=== PATIENT | female | born 1935 | race African-American/Black ===

== ENCOUNTER 2016-09-25 10:56 | Inpatient (IN) | payer MEDICARE, MEDICAID ==
[2016-09-25] VITALS (23 sets, daily range): BP systolic 120–231; BP diastolic 56–154; PULSE 55–83; RESP 14; TEMP 93.4–98.6; O2SAT 100
[~2016-09-25 10:56] MED LIST: ADVAI250I PO; ALBU6.7H INH; BUME1TAB PO; CALC667C PO; CARV3.12 PO; DOCU1CAP39 PO; DUONI NEB; FERR324T4 PO; HUMALOGP SQ; ISOS10 PO; LORA0.5T PO; NORC7.5T PO; ONDA4 PO; POLY119S PO; PROT40TA PO; TEMA15 PO; WARF1TAB PO
[2016-09-25] MEDS ORDERED: ETOMIDATE 20 MG/10 ML VIAL ONE (11:04)
[2016-09-25] MEDS ORDERED: SUCCINYLCHOLINE CHLORIDE 200 MG/10 ML VIAL ONE (11:04)
[2016-09-25] MEDS ORDERED: PROPOFOL 1000 MG/100 ML INJ 100 ML ONE (11:06)
--- NOTE | 2016-09-25 11:27 | PD ---
HPI Chief Complaint: Stroke Alert Time Seen by Provider: 11:00 Travel History International Travel<30 days: No Contact w/Intl Traveler<30days: No Traveled to known affect area: No History of Present Illness HPI The patient was seen and examined in the presence of the nurse. This patient arrives as a stroke alert. She is a longterm patient who has A. fib and takes Coumadin. She complained of a headache and was found to be unresponsive with GCS of 3. She cannot provide any history or review of systems. PFSH Past Medical History Hx Anticoagulant Therapy: Yes Arthritis: Yes Asthma: No Autoimmune Disease: No Blood Disorders: No Anxiety: No Depression: No Heart Rhythm Problems: Yes (A-FIB, coumadin) Cancer: No Cardiovascular Problems: Yes High Cholesterol: Yes Chemotherapy: No Chest Pain: No Congestive Heart Failure: Yes Cirrhosis: No COPD: Yes Cerebrovascular Accident: Yes Diabetes: Yes Diminished Hearing: No Endocrine: Yes (ESRD) Gastrointestinal Disorders: Yes GERD: No Glaucoma: No Genitourinary: No Headaches: Yes Hepatitis: No Hiatal Hernia: No Hypertension: Yes Immune Disorder: No Implanted Vascular Access Dvce: Yes Kidney Stones: No Musculoskeletal: Yes Neurologic: Yes (confusion) Psychiatric: No Reproductive: No Respiratory: Yes Migraines: No Myocardial Infarction: Yes Radiation Therapy: No Renal Failure: No Seizures: Yes (1 seizure last yr ) Sickle Cell Disease: No Sleep Apnea: No Thyroid Disease: No Ulcer: No PNEUMOCCOCAL Vaccine (Year): 2 Menopausal: Yes Past Surgical History Abdominal Surgery: No AICD: Yes Appendectomy: No Arteriovenous Shunt: No Body Medical Devices: INTERNAL CARDIAC DEFIB Cardiac Surgery: Yes (AICD placement, pacer placement) Cholecystectomy: No Ear Surgery: No Endocrine Surgery: No Eye Surgery: No Genitourinary Surgery: No Gynecologic Surgery: Yes (hysterectomy) Hysterectomy: Yes Insulin Pump: No Joint Replacement: No Neurologic Surgery: No Oral Surgery: No Pacemaker: Yes Thoracic Surgery: No Other Surgery: Yes (BILATERAL LYMPH NODES REMOVED UNDER ARMS, HYSTERECTOMY) Social History Alcohol Use: No Tobacco Use: No (1PPD 1951) Substance Use: No Allergies-Medications (Allergen,Severity, Reaction): Coded Allergies: MRI PRECAUTION (Verified Adverse Reaction, Severe, NON REVO PACEMAKER 11/09 LRS, 03/18/16) Reported Meds & Prescriptions Reported Meds & Active Scripts Active Carvedilol 3.125 mg (Carvedilol) 3.125 Mg Tab 3.125 Mg PO BID 30 Days Bumetanide 1 Mg (Bumetanide) 1 Mg Tab 1 Mg PO DAILY 30 Days [place] 7.5-325 mg (Hydrocodone-Acetaminophen 7.5-325 mg) 1 Tab 1 Tab PO Q8HR PRN Ferrous Sulfate 325 Mg Tab 325 Mg PO DAILY Proventil Hfa (Albuterol Sulfate) 6.7 Gm Aero 2 Puff INH Q4 30 Days NEEDED FOR SHORTNESS OF BREATH Protonix (Pantoprazole Sodium) 40 Mg Tab 40 Mg PO DAILY Reported Resp: Albuterol/Ipratropium 2.5 Mg/0.5 Mg (Albuterol/Ipratropium) 1 Amp Nebu 1 Ampule NEB Q4HR NEB PRN Restoril 15 mg (Temazepam) 15 Mg Cap 15 Mg PO HS PRN Phoslo 667 Mg Gelcap (Calcium Acetate) 667 Mg Cap 667 Mg PO TID Isordil 10 Mg Tab (Isosorbide Dinitrate) 10 Mg Tab 10 Mg PO BID 0900 & 1700 Colace 100 Mg Cap (Docusate Sodium) 100 Mg Cap 100 Mg PO BID 0900 & 1700 Advair Diskus 250/50 (Salmeterol Xinafoate/Fluticasone) Fluticasone/Salmeterol 250/50 Inh 1 Puff PO BID Warfarin Sodium 1 mg (Warfarin Sodium) 1 Mg Tab 3.5 Mg PO DAILY@1600 Lorazepam 0.5 Mg Tab 0.25 Mg PO Q6HR PRN Humalog Insulin Supplemental Scale (Insulin Human Lispro) 100 Units/Ml Inj 1-5 Units SQ TIDACHS Low Dose Lispro Insulin Sliding Scale = Max dose at bedtime:( )units; Max dose at 3am:( ); blood sugars less than 70 take zero insulin units; blood sugars 150-199 take 1 unit; blood sugars 200-249 take 2 units; blood sugars 250-299 take 3 units; blood sugars 300-349 take 4 units; blood sugars greater than 349 take 5 units Miralax 119 Gm Bottle (Polyethylene Glycol) 119 Gm Powd 17 Gm PO DAILY PRN 17 GRAMS = 1 TABLESPOON DISSOLVED IN 4 TO 8 OUNCES OF BEVERAGE Zofran 4 Mg Tab (Ondansetron Hcl) 4 Mg Tab 4 Mg PO TID PRN Review of Systems ROS Limitations: Clinical Condition, Altered Mental Status, Unresponsive, Poor Historian Physical Exam Narrative GENERAL: Thin elderly well-developed patient who is unresponsive . SKIN: Warm and dry. HEAD: Atraumatic. Normocephalic. EYES: Pupil on the left is round and reactive. Pupil on the right has a completely clouded over cornea. No scleral icterus. No injection or drainage. ENT: No nasal bleeding or discharge. Mucous membranes pink and moist. She has absolutely no gag reflex. NECK: Trachea midline. No JVD. CARDIOVASCULAR: Regular rate and rhythm. No murmur appreciated. RESPIRATORY: No accessory muscle use. Clear to auscultation. Breath sounds equal bilaterally. GASTROINTESTINAL: Abdomen soft, non-tender, nondistended. Hepatic and splenic margins not palpable. MUSCULOSKELETAL: No obvious deformities. No clubbing. No cyanosis. No edema. NEUROLOGICAL: Unresponsive, no response to pain. No gag reflex. GCS 3. Nonverbal. Impossible to accurately gauge motor strength or sensation PSYCHIATRIC: Impossible to test mood or affect or insight or judgment. Data Data Last Documented VS Vital Signs Date Time Temp Pulse Resp B/P Pulse Ox O2 Delivery O2 Flow Rate FiO2 09/25/16 11:39 66 176/79 100 Orders Etomidate Inj (Amidate Inj) (09/25/16 11:04) Succinylcholine Inj (Quelicin Inj) (09/25/16 11:04) Propofol 1000 Mg/100 Ml Inj (Diprivan 10 (09/25/16 11:06) Diet Npo (09/25/16 Lunch) Activity Bed Rest (09/25/16 ) Electrocardiogram (09/25/16 ) I-Stat Creatinine (09/25/16 11:16) I-Stat Profile (09/25/16 11:16) Prothrombin Time / Inr (Pt) (09/25/16 11:16) Act Partial Throm Time (Ptt) (09/25/16 11:16) Complete Blood Count With Diff (09/25/16 11:16) Fibrinogen (09/25/16 11:16) Creatine Kinase (Cpk) (09/25/16 11:16) Ct Brain W/O Iv Contrast(Rout) (09/25/16 ) Blood Glucose (09/25/16 11:16) Ecg Monitoring (09/25/16 11:16) Neuro Checks Q2HX12,Q4H (09/25/16 11:16) Iv Access Insert/Monitor (09/25/16 11:16) NPO (09/25/16 11:16) Oximetry (09/25/16 11:16) Oxygen Administration (09/25/16 11:16) Resp Oxygen Vidal C Titrat 1-4 L (09/25/16 11:16) Arterial Blood Gas (Abg) (09/25/16 ) Chest, Single Ap (09/25/16 ) Urinary Catheter Insert/Apply (09/25/16 11:19) Etomidate Inj (Amidate Inj) (09/25/16 11:30) Succinylcholine Inj (Quelicin Inj) (09/25/16 11:30) Pedro-Gastric Tube Insert/Mon (09/25/16 11:19) CKMB (09/25/16 10:50) CKMB% (09/25/16 10:50) Phytonadione Inj (Aquamephyton Inj) (09/25/16 12:00) Fresh Frozen Plasma (Ffp) (09/25/16 11:57) Blood Product Administration .UPON TRANSFUSION (09/25/16 11:57) Admit Order (Ed Use Only) (09/25/16 12:08) Labs Laboratory Tests Test 09/25/16 10:50 White Blood Count 6.4 TH/MM3 Red Blood Count 4.21 MIL/MM3 Hemoglobin 11.2 GM/DL Bedside Hemoglobin 11.9 G/DL Hematocrit 34.0 % Bedside Hematocrit 35.0 % Mean Corpuscular Volume 80.9 FL Mean Corpuscular Hemoglobin 26.7 PG Mean Corpuscular Hemoglobin 33.0 % Concent Red Cell Distribution Width 19.1 % Platelet Count 148 TH/MM3 Mean Platelet Volume 10.4 FL Neutrophils (%) (Auto) 44.5 % Lymphocytes (%) (Auto) 39.0 % Monocytes (%) (Auto) 11.9 % Eosinophils (%) (Auto) 3.7 % Basophils (%) (Auto) 0.9 % Neutrophils # (Auto) 2.8 TH/MM3 Lymphocytes # (Auto) 2.5 TH/MM3 Monocytes # (Auto) 0.8 TH/MM3 Eosinophils # (Auto) 0.2 TH/MM3 Basophils # (Auto) 0.1 TH/MM3 CBC Comment DIFF FINAL Differential Comment Prothrombin Time 28.1 SEC Prothromb Time International 2.4 RATIO Ratio Activated Partial 31.7 SEC Thromboplast Time Fibrinogen 320 mg/dL Bedside Sodium 140 MMOL/L Bedside Potassium 4.4 MMOL/L Bedside Chloride 105 MMOL/L Bedside Blood Urea Nitrogen 76 MG/DL Bedside Creatinine 2.5 MG/DL Bedside Glucose 143 MG/DL Total Creatine Kinase 230 U/L Creatine Kinase MB 2.9 NG/ML Creatine Kinase MB % 1.3 % [facility] Medical Decision Making Medical Screen Exam Complete: Yes Emergency Medical Condition: Yes Medical Record Reviewed: Yes Differential Diagnosis Intracranial hemorrhage, ischemic stroke, cardiac arrhythmia Narrative Course I have reviewed the patient's electronic medical record. Reviewed her most recent history and physical. She has cardiomyopathy and chronic A. fib on Coumadin. Reviewed her most recent longterm evaluation as well Nurse's placed 2 IVs I placed a 20-gauge in the right external jugular vein Patient arrives critically ill with no airway control INTUBATION: The patient was put in optimal position for the procedure. Rapid sequence intubation was initiated by me using 20 milligrams of etomidate IV and 100 milligrams of succinylcholine IV. The patient was intubated with a 7.5 cuffed endotracheal tube. Tube placement was confirmed by visualization of the tube and balloon passing through the cords, capnometry and subsequent chest x- ray. Breath sounds were equal and well aerated bilaterally postintubation. No breath sounds over stomach. Patient tolerated procedure well. Patient initial blood pressure is 180 with a rhythm A. fib Extended cardiac monitoring confirms atrial fibrillation Brain CT shows very large hemorrhage 8.4 x 4.8 cm with 2 cm of midline shift CBC shows minor anemia Metabolic profile reveals normal electrolytes but creatinine of 2.5 INR on Coumadin is 2.4 Of note, due to the airway taking precedence there was delayed to get the patient a CT so she will not have been there in 10 minutes due to the fact that I had to intubate her to secure her airway. This is a catastrophic finding. I discussed with neurosurgeon Dr. Leavitt. This is beyond operative repair. He is not able to do much for this problem. I gave her a dose of vitamin K and ordered 3 units of FFP Placed her on Cardene drip to control systolic blood pressure Patient will be admitted to intensive care but ultimately I'm not sure this will be a survivable Patient is very complex, multiple rechecks were done. At this point she is not requiring Diprivan for sedation I paged the cigar bander to discuss Critical Care Narrative Aggregate critical care time was 80 minutes. Time to perform other separately billable procedures was not included in the critical care time. My time did not include minutes spent treating any other patients simultaneously or on activities that did not directly contribute to the patient's treatment. The services I provided to this patient were to treat and/or prevent clinically significant deterioration that could result in: Cardiopulmonary arrest, brain stem herniation, permanent hypoxemic brain injury I provided critical care services requiring my management, as noted below: Chart data review, documentation time, medication orders and management, vital sign assessments/reviewing monitor data, ordering and reviewing lab tests, ordering and interpreting/reviewing x-rays and diagnostic studies, care of the patient and discussion of the patient with the admitting physicians. Diagnosis Primary Impression: Intracranial hemorrhage Additional Impressions: Accelerated hypertension History of Coumadin therapy Admitting Information Admitting Physician Requests: Admit Que Payton MD Sep 25, 2016 11:27
[2016-09-25 11:28] LABS: I-STAT POTASSIUM 4.4 MMOL/L (3.5-4.9)
[2016-09-25] MEDS ORDERED: SUCCINYLCHOLINE CHLORIDE 200 MG/10 ML VIAL IV PUSH ONE (11:30)
[2016-09-25] MEDS ORDERED: ETOMIDATE 20 MG/10 ML VIAL IV PUSH ONE (11:30)
[2016-09-25 11:32] LABS: AUTOMATED NEUTROPHIL # 2.8 TH/MM3 (1.8-7.7); BASOPHIL # 0.1 TH/MM3 (0-0.2); BASOPHIL % 0.9 % (0.0-2.0); EOSINOPHIL # 0.2 TH/MM3 (0-0.4); EOSINOPHIL % 3.7 % (0.0-4.0); HEMO FLAGS DIFF FINAL; LYMPHOCYTE # 2.5 TH/MM3 (1.0-4.8); MEAN CELL VOLUME 80.9 FL (80.0-100.0); MEAN CORPUSCULAR HEMOGLOBIN 26.7 PG (27.0-34.0); MONO % 11.9 % (0.0-8.0); NEUT % 44.5 % (16.0-70.0); PLATELET COUNT 148 TH/MM3 (150-450); RED BLOOD COUNT 4.21 MIL/MM3 (4.00-5.30); RED CELL DISTRIBUTION WIDTH 19.1 % (11.6-17.2); WHITE BLOOD COUNT 6.4 TH/MM3 (4.0-11.0)
[2016-09-25 11:36] LABS: APTT (PATIENT) 31.7 SEC (24.3-30.1); INTERNATIONAL NORMALIZED RATIO 2.4 RATIO; PROTHROMBIN TIME - PATIENT 28.1 SEC (9.8-11.6)
--- NOTE | 2016-09-25 11:41 | RADRPT ---
EXAM DATE/TIME: 09/25/2016 11:27 [facility] COMPARISON: No previous studies available for comparison. INDICATIONS : Stroke alert, headache, unilateral weakness RADIATION DOSE: 37.48 CTDIvol (mGy) This report was called by Dr. Mzea to Dr. Payton at 11: 37 AM MEDICAL HISTORY : Hypertension. Diabetes mellitus type 1. Cardiovascular disease SURGICAL HISTORY : None. ENCOUNTER: Initial ACUITY: 1 day PAIN SCALE: Non-responsive LOCATION: cranial TECHNIQUE: Multiple contiguous axial images were obtained of the head. Using automated exposure control and adj ustment of the mA and/or kV according to patient size, radiation dose was kept as low as reasonably a chievable to obtain optimal diagnostic quality images. FINDINGS: There is a large hemorrhagic infarct in the right hemisphere measuring up to 8.4 x 4.8 cm with surrou nding edema and mass effect. There is also an element of subarachnoid hemorrhage and possibly some cali bdural hemorrhage over the right convexity. Days midline shift of 1.9 cm from right to left. There is some early entrapment of the left lateral ventricle. There is effacement of the basilar cisterns. Th ere is subfalcine herniation on the right. CONCLUSION: 1. Large right-sided hemispheric hemorrhage measuring up to 8.4 x 4.8 cm with some associated subdura l and subarachnoid hemorrhage. There is surrounding edema and extensive mass effect with 1.9 cm right to left midline shift. There is effacement of the basilar cisterns and entrapment of the left latera l ventricle. Jose Luis Meza MD on September 25, 2016 at 11:35 Board Certified Radiologist. This report was verified electronically.
--- NOTE | 2016-09-25 11:59 | RADRPT ---
EXAM DATE/TIME: 09/25/2016 11:34 [facility] COMPARISON: CT THORAX W/O CONTRAST, October 03, 2015, 0:54. CHEST SINGLE AP, March 20, 2016, 18:59. INDICATIONS : Stroke alert. Post intubation. MEDICAL HISTORY : unobtainable SURGICAL HISTORY : unobtainable ENCOUNTER: Initial ACUITY: 1 day PAIN SCORE: Non-responsive. LOCATION: chest FINDINGS: Portable AP view of the chest demonstrate stable enlargement of the cardiac silhouette. Left chest wa ll cardiac pacing device/AICD is present. Aortic arch remains mildly enlarged but stable. Endotrachea l tube is present with tip measuring 2.3 cm from the aric. Lungs are underinflated. There is no eff usion, consolidation, or pneumothorax visualized. CONCLUSION: 1. Endotracheal tube in appropriate position with tip measuring approximately 2.3 cm from the airc. 2. Stable enlargement of the cardiac silhouette and enlarged aortic arch. Dillan Nicole MD on September 25, 2016 at 11:56 Board Certified Radiologist. This report was verified electronically.
[2016-09-25] MEDS ORDERED: PHYTONADIONE INJ 1 MG/0.5 ML AMP SQ ONE (12:00)
[2016-09-25 12:03] LABS: CKMB 2.9 NG/ML (0.5-3.6)
[2016-09-25 12:18] LABS: BLOOD GAS BASE EXCESS -0.3 mmol/L (-2-2); BLOOD GAS HCO3 22 mmol/L (22-26); BLOOD GAS METHEMOGLOBIN 0.5 % (0-2); BLOOD GAS O2 HGB SATURATION 99 % (90-100); BLOOD GAS OXYGEN CONTENT 17.1 Vol % (12.0-20.0); BLOOD GAS PCO2 25 mmHg (38-42); BLOOD GAS PO2 517 mmHG (61-120); BLOOD GAS TOTAL HGB 11.4 G/DL (12.0-16.0); TEMP CORR TO 98.6
[2016-09-25 12:20] LABS: CRITICAL VALUE YES; DRAW SITE RT FEMORAL; FIO2 100 %; NUMBER OF ARTERIAL PUNCTURES 1; OXYGEN DEVICE VENTILATOR; STAT YES; VENT SETTINGS 500/16/+5
[2016-09-25] MEDS ORDERED: PHYTONADIONE 10 MG/ML VIAL SQ ONE (12:45)
[2016-09-25] MEDS ORDERED: MISCELLANEOUS NURSING INFORMATION XX SCH (13:00)
[2016-09-25] MEDS ORDERED: PROPOFOL 1000 MG/100 ML INJ 100 ML IV SCH (13:00)
[2016-09-25] MEDS ORDERED: levETIRAcetam 1000 MG INJ 100 ML IV ONE (13:00)
[2016-09-25] MEDS ORDERED: niCARdipine INJ 25 MG in SODIUM CHLOR 0.9% 250 ML INJ 250 ML IV ONE (13:00)
[2016-09-25] MEDS ORDERED: SODIUM CHLORIDE 0.9% FLUSH 5 ML FLUSH IV FLUSH PRN (13:00)
[2016-09-25] MEDS ORDERED: fentaNYL DRIP 250 ML IV SCH (13:00)
[2016-09-25] MEDS ORDERED: PROTHROMBIN COMPLEX CONC INJ 1,500 UNITS in SYRINGE/BAG 1 EA IV ONE (13:00)
[2016-09-25] MEDS ORDERED: CHLORHEXIDINE GLUCONATE 2 % 1 PACK (2 CLOTHS) TOP PRN (13:00)
[2016-09-25] MEDS ORDERED: HYDR-3288 PO (13:04)
[2016-09-25] MEDS ORDERED: REST15CA PO (13:04)
[2016-09-25] MEDS ORDERED: FERR325T PO (13:04)
[2016-09-25] MEDS ORDERED: ISOS10TA PO (13:04)
[2016-09-25] MEDS ORDERED: CARV3.125 PO (13:04)
[2016-09-25] MEDS ORDERED: PHOS667C5 PO (13:04)
[2016-09-25] MEDS ORDERED: OXYBXL5 PO (13:04)
[2016-09-25] MEDS ORDERED: VITA100018 PO (13:04)
[2016-09-25] MEDS ORDERED: COLA100C3 PO (13:04)
[2016-09-25] MEDS ORDERED: COUM5TAB PO (13:04)
[2016-09-25] MEDS ORDERED: BUME1TAB26 PO (13:04)
[2016-09-25] MEDS ORDERED: LORA-392 PO (13:04)
[2016-09-25] MEDS ORDERED: [UNRECOGNIZED DRUG - CODE] PO (13:04)
[2016-09-25] MEDS ORDERED: ACETAMINOPHEN 325 MG TAB PO PRN (14:00)
[2016-09-25] MEDS ORDERED: RESP: ALBUTEROL 2.5 MG/IPRATROPIUM 0.5 MG NEB (PRN) INH (14:00)
[2016-09-25] MEDS ORDERED: ONDANSETRON HCL 4 MG/2 ML VIAL IV PRN (14:00)
[2016-09-25 14:02] LABS: TOTAL BILIRUBIN ADULT 0.4 MG/DL (0.2-1.0)
--- NOTE | 2016-09-25 14:03 | PD.PROCEDR ---
Central Line Procedure REASON FOR PROCEDURE Central venous access PROCEDURE PERFORMED Central line placement: R subclavian central line CONSENT Informed consent for procedure was obtained. ANESTHESIA Local injection of 1% Lidocaine DESCRIPTION OF THE PROCEDURE The patient was placed in supine, mild Trendelenburg position. The area was exposed and cleansed with ChloraPrep, times two. Large sterile drape was used to cover the patient, with the site exposed, under sterile conditions including cap, face mask, sterile gown, and sterile gloves. On single attempt, the introducer needle was inserted with negative pressure in syringe and venous flash was obtained. The guide wire was then advanced without any restriction and the needle was removed. The dilator was used without any complications. Using Seldinger technique the 20 CM 7F triple lumen catheter was advanced over the guide wire to a depth of 16 centimeters. The guide wire was removed. All ports were aspirated with dark venous blood return and flushed easily with sterile saline. All ports were capped. Antibiotic disc was placed around central line at puncture site. The central line was secured to the skin with two interrupted 2.0 silk sutures. The area was bandaged with sterile see- through central line bandage. COMPLICATIONS: No apparent complications ESTIMATED BLOOD LOSS: Less than 1 cc. Karyn Grimaldo MD Sep 25, 2016 14:03
[2016-09-25 14:04] LABS: INDIRECT BILIRUBIN 0.2 MG/DL (0.0-0.8); MAGNESIUM 2.3 MG/DL (1.5-2.5)
--- NOTE | 2016-09-25 14:11 | HHI.HP ---
HPI Service Critical Care Medicine Primary Care Physician Unknown Admission Diagnosis ICH,elevated INR Diagnosis: (1) Intracranial hemorrhage Diagnosis: Principal (2) Accelerated hypertension Diagnosis: Principal (3) History of Coumadin therapy Diagnosis: Principal (4) COPD (chronic obstructive pulmonary disease) with emphysema Diagnosis: Principal (5) CAD (coronary artery disease) Diagnosis: Principal (6) Aortic stenosis Diagnosis: Principal (7) Diabetes mellitus Diagnosis: Principal (8) Normocytic anemia Diagnosis: Principal (9) Chronic kidney disease, stage IV (severe) Diagnosis: Principal (10) Thrombocytopenia Diagnosis: Principal (11) Depression Diagnosis: Principal (12) Incontinence Diagnosis: Principal (13) Constipation Diagnosis: Principal Chief Complaint: Unresponsive Travel History International Travel<30 Days: No Contact w/Intl Traveler <30 Da: No Traveled to Known Affected Are: No History of Present Illness 81-year-old female. Date of admission 09/25/2016. Past medical history includes CVA, seizure, coronary artery disease, atrial fibrillation, aortic stenosis, ischemic cardiopathy ejection fraction between 10 and 20%, atrial fibrillation, COPD, diabetes mellitus, chronic kidney disease stage IV, osteoarthritis, and urinary incontinence. She is a resident of [facility]. Review of Systems ROS Limitations: Intubated Past Family Social History Allergies: Coded Allergies: MRI PRECAUTION (Verified Adverse Reaction, Severe, NON REVO PACEMAKER 11/09 LRS, 03/18/16) Past Medical History CVA Seizure disorder Coronary artery disease Ischemic cardiomyopathy ejection fraction 20% 2015 Atrial fibrillation Diabetes mellitus COPD Osteoarthritis Chronic kidney disease stage IV Past Surgical History Hysterectomy Pacemaker/AICD with replacement Lymph node dissection Left hemicolectomy secondary to polyp Reported Medications Active Carvedilol 3.125 mg (Carvedilol) 3.125 Mg Tab 3.125 Mg PO BID 30 Days Bumetanide 1 Mg (Bumetanide) 1 Mg Tab 1 Mg PO DAILY 30 Days [place] 7.5-325 mg (Hydrocodone-Acetaminophen 7.5-325 mg) 1 Tab 1 Tab PO Q8HR PRN Ferrous Sulfate 325 Mg Tab 325 Mg PO DAILY Proventil Hfa (Albuterol Sulfate) 6.7 Gm Aero 2 Puff INH Q4 30 Days NEEDED FOR SHORTNESS OF BREATH Protonix (Pantoprazole Sodium) 40 Mg Tab 40 Mg PO DAILY Reported Resp: Albuterol/Ipratropium 2.5 Mg/0.5 Mg (Albuterol/Ipratropium) 1 Amp Nebu 1 Ampule NEB Q4HR NEB PRN Restoril 15 mg (Temazepam) 15 Mg Cap 15 Mg PO HS PRN Phoslo 667 Mg Gelcap (Calcium Acetate) 667 Mg Cap 667 Mg PO TID Isordil 10 Mg Tab (Isosorbide Dinitrate) 10 Mg Tab 10 Mg PO BID 0900 & 1700 Colace 100 Mg Cap (Docusate Sodium) 100 Mg Cap 100 Mg PO BID 0900 & 1700 Advair Diskus 250/50 (Salmeterol Xinafoate/Fluticasone) Fluticasone/Salmeterol 250/50 Inh 1 Puff PO BID Warfarin Sodium 1 mg (Warfarin Sodium) 1 Mg Tab 3.5 Mg PO DAILY@1600 Lorazepam 0.5 Mg Tab 0.25 Mg PO Q6HR PRN Humalog Insulin Supplemental Scale (Insulin Human Lispro) 100 Units/Ml Inj 1-5 Units SQ TIDACHS Low Dose Lispro Insulin Sliding Scale = Max dose at bedtime:( )units; Max dose at 3am:( ); blood sugars less than 70 take zero insulin units; blood sugars 150-199 take 1 unit; blood sugars 200-249 take 2 units; blood sugars 250-299 take 3 units; blood sugars 300-349 take 4 units; blood sugars greater than 349 take 5 units Miralax 119 Gm Bottle (Polyethylene Glycol) 119 Gm Powd 17 Gm PO DAILY PRN 17 GRAMS = 1 TABLESPOON DISSOLVED IN 4 TO 8 OUNCES OF BEVERAGE Zofran 4 Mg Tab (Ondansetron Hcl) 4 Mg Tab 4 Mg PO TID PRN Active Ordered Medications Reviewed in EMR Family History Mother 83 stomach cancer. Father 67 gunshot wound. Sister with stomach cancer. One brother with heart disease. Social History Quit tobacco 4 years ago. No alcohol use currently. No Documentation of IV drug use Physical Exam Vital Signs Vital Signs Date Time Temp Pulse Resp B/P Pulse Ox O2 Delivery O2 Flow Rate FiO2 09/25/16 13:27 57 202/86 09/25/16 13:18 55 222/93 09/25/16 12:14 58 194/80 09/25/16 11:39 66 176/79 100 09/25/16 11:36 70 174/76 100 09/25/16 11:28 63 157/73 100 09/25/16 11:25 63 158/72 100 09/25/16 11:22 69 182/74 100 09/25/16 11:20 100 100 09/25/16 11:18 61 206/91 09/25/16 11:12 100 Ventilator 100 09/25/16 11:12 100 100 09/25/16 11:10 83 184/113 100 09/25/16 10:59 76 231/154 100 Physical Exam GENERAL: 81-year-old female, critically ill, currently orotracheally intubated. SKIN: Warm and dry. No rash HEAD: Atraumatic. Normocephalic. EYES: Pupils equal and round about 3 mm bilaterally and reactive. No scleral icterus. No injection or drainage. ENT: No nasal bleeding or discharge. Mucous membranes pink and moist. NECK: Trachea midline. No JVD. CARDIOVASCULAR: IR/pacer, S1, S2. No S4. 2/6 systolic murmur sternal border RESPIRATORY: Diminished but essentially clear to auscultation bilaterally. Breath sounds equal bilaterally. GASTROINTESTINAL: Abdomen soft, non-tender, nondistended. Hypoactive bowel sounds are appreciated. MUSCULOSKELETAL: Extremities without significant peripheral edema. No obvious deformities. NEUROLOGICAL: Positive corneal effects. Positive gag. Moved left upper and lower extremity to noxious stimuli. Right upper and lower extremity essentially flaccid. Laboratory Laboratory Tests Test 09/25/16 09/25/16 09/25/16 09/25/16 10:50 11:50 12:03 12:07 White Blood Count 6.4 Red Blood Count 4.21 Hemoglobin 11.2 Bedside Hemoglobin 11.9 Hematocrit 34.0 Bedside Hematocrit 35.0 Mean Corpuscular Volume 80.9 Mean Corpuscular Hemoglobin 26.7 Mean Corpuscular Hemoglobin 33.0 Concent Red Cell Distribution Width 19.1 Platelet Count 148 Mean Platelet Volume 10.4 Neutrophils (%) (Auto) 44.5 Lymphocytes (%) (Auto) 39.0 Monocytes (%) (Auto) 11.9 Eosinophils (%) (Auto) 3.7 Basophils (%) (Auto) 0.9 Neutrophils # (Auto) 2.8 Lymphocytes # (Auto) 2.5 Monocytes # (Auto) 0.8 Eosinophils # (Auto) 0.2 Basophils # (Auto) 0.1 CBC Comment DIFF FINAL Differential Comment Prothrombin Time 28.1 Prothromb Time International 2.4 Ratio Activated Partial 31.7 Thromboplast Time Fibrinogen 320 Bedside Sodium 140 Bedside Potassium 4.4 Bedside Chloride 105 Bedside Blood Urea Nitrogen 76 Bedside Creatinine 2.5 Bedside Glucose 143 Total Creatine Kinase 230 Creatine Kinase MB 2.9 Creatine Kinase MB % 1.3 Blood Type B POSITIVE Antibody Screen NEGATIVE Blood Bank Comment Blood Gas Puncture Site RT FEMORAL Blood Gas Patient Temperature 98.6 Blood Gas HCO3 22 Blood Gas Base Excess -0.3 Blood Gas Oxygen Saturation 99 Arterial Blood pH 7.55 Arterial Blood Partial 25 Pressure CO2 Arterial Blood Partial 517 Pressure O2 Arterial Blood Oxygen Content 17.1 Arterial Blood 1.0 Carboxyhemoglobin Arterial Blood Methemoglobin 0.5 Blood Gas Hemoglobin 11.4 Oxygen Delivery Device VENTILATOR Blood Gas Ventilator Setting 500/16/+5 Blood Gas Inspired Oxygen 100 Result Diagram: 09/25/16 1050 Imaging Last Impressions Head CT 09/25/16 0000 Signed Impressions: Service Date/Time: September 11:27 - CONCLUSION: 1. Large right-sided hemispheric hemorrhage measuring up to 8.4 x 4.8 cm with some associated subdural and subarachnoid hemorrhage. There is surrounding edema and extensive mass effect with 1.9 cm right to left midline shift. There is effacement of the basilar cisterns and entrapment of the left lateral ventricle. Jose Luis Meza MD Chest X-Ray 09/25/16 0000 Signed Impressions: Service Date/Time: September 11:34 - CONCLUSION: 1. Endotracheal tube in appropriate position with tip measuring approximately 2.3 cm from the aric. 2. Stable enlargement of the cardiac silhouette and enlarged aortic arch. Dillan Nicole MD Assessment and Plan Assessment and Plan Neuro/Psych: Right hemorrhagic intracerebral hemorrhage 8.4 x 4.8 cm with subdural and subarachnoid hemorrhage with a 1.9 cm right to left shift History CVA History of seizures History of CVA Insomnia Chronic benzodiazepine use CT head on admission revealed a right hemorrhagic CVA 8.4 x 4 point centimeters with concurrent subdural hematoma/subarachnoid hemorrhage with 1.9 similar right to left shift. Dr. Leavitt/neurosurgery consulted 3% saline at 30 cc an hour with serial sodiums every 6 hours goal sodium 150- 155. Keppra 1 g loaded with 500 twice a day for seizure prophylaxis Recheck CT head in a.m. or earlier if clinically indicated Will keep systolic blood pressure less than 140 Hold home medication Restoril 15 mg at night for insomnia Holding Ativan 0.25 mg every 6 hours as needed for anxiety CV: Hypertensive emergency Coronary artery disease Ischemic coronary mouth ejection fraction 20% by echo History H fibrillation Status post post pacemaker with AICD with replacement 2015 Currently on Cardene drip to maintain systolic blood pressure less than 140 As needed labetalol/hydralazine ordered Holding Coreg 3. 125 mg twice a day for hypertension. Echocardiogram 04/04 revealed EF 20%. Systolic function severely reduced. Left ventricle dilated. Aortic valve with moderate stenosis. Mild MR. Mild TR. BASSAM 50 mmHg Holding Bumex 1 mg by mouth daily. Resume when clinically indicated Resp: Acute respiratory failure History COPD ACV 14/500/5/100 Goal end tidal CO2 between 30 and 35 Ventilator bundle As needed bronchodilator therapy Follow-up chest x-ray in a.m. Joe breathing trials when clinically indicated GI: Patient is currently nothing by mouth Protonix for GI prophylaxis Colace/as needed Senokot for bowel regimen : Urinary incontinence Holding Ditropan 5 mg by mouth twice a day Lees will be placed for accurate I's and O's in a critically ill patient Endo: Diabetes mellitus Sliding scale insulin with Accu-Cheks to maintain euglycemia/every 6 hours moderate regimen Renal: Chronic kidney disease stage IV Creatinine currently 2.5. Baseline appears around 3. Currently on normal saline at 84 cc an hour. Follow-ups BMP in a.m. Heme: Normocytic anemia Thrombocytopenia Chronic Coumadin use Status post 10 mg vitamin K, 1500 K Centra and 3 units FFP. Recheck coags this evening Obvious holding Coumadin 5 mg by mouth daily ID: Monitor for infection MSK: Osteoarthritis Holding vitamin D 1000 units by mouth twice a day FEN: Replace electrolytes as clinically indicated Access - Right subclavian CVL day 1 Prophylaxis - GI - Protonix - DVT - SCD/pharmacological prophylaxis contra indicated with intracerebral hemorrhage Critical Care: The total critical care time was 35 minutes. Time to perform other separately billable procedures was not included in the critical care time. Code Status Full code Discussed Condition With Family. I discussed all questions answered. Problem Qualifiers (1) COPD (chronic obstructive pulmonary disease) with emphysema: Qualified Code: J43.9 - Pulmonary emphysema, unspecified emphysema type (2) CAD (coronary artery disease): Qualified Code: I25.10 - Coronary artery disease involving [place] coronary artery, angina presence unspecified, unspecified whether [place] or transplanted heart (3) Aortic stenosis: Qualified Code: I35.0 - Nonrheumatic aortic valve stenosis (4) Diabetes mellitus: Qualified Code: E11.9 - Type 2 diabetes mellitus without complication, without long-term current use of insulin (5) Depression: Qualified Code: F32.9 - Depression, unspecified depression type (6) Incontinence: Qualified Code: R32 - Urinary incontinence, unspecified type (7) Constipation: Qualified Code: K59.00 - Constipation, unspecified constipation type Barry Cartwright MD Sep 25, 2016 14:11
--- NOTE | 2016-09-25 14:17 | PD.PROCEDR ---
Central Line Procedure REASON FOR PROCEDURE Central venous access PROCEDURE PERFORMED Central line placement: Left IJ CVL followed by left femoral CVL CONSENT Informed consent for procedure was obtained. The risks and benefits of the procedure were discussed to include but limited to bleeding, clot formation, infection, and even . ANESTHESIA Local injection of 1% Lidocaine DESCRIPTION OF THE PROCEDURE The patient was placed in supine, mild Trendelenburg position. The area was exposed and cleansed with ChloraPrep, times two. Large sterile drape was used to cover the patient, with the site exposed, under sterile conditions including cap, face mask, sterile gown, and sterile gloves. On 3 separate attempts, the introducer needle was inserted with negative pressure in syringe and venous flash was obtained. The guide wire was then advanced to about 10 cm with resistance met. Distal noted likely stenosis therefore procedure was stopped. Chest x-ray ordered. Next, attempted left femoral region. The area was exposed and cleansed with ChloraPrep 3. Large sterile drape was used to cover the patient with the site exposed under sterile conditions using, face mask sterile gown and sterile gloves. On first attempt, the introducer needle was inserted with negative pressure in syringe and venous flash was obtained. The guidewire was advanced to about 20 cm with resistance met. Upon retracting guidewire, unable to remove from introducer needle. Introducer needle was removed and guidewire appeared frayed. Pressure was held and vascular surgery was notified. Insertion site has been packed. No hematoma. Good peripheral pulses dorsalis pedis/posterior tibialis Vascular checks will be performed.. The guidewire was taped to the leg. Dr. Holden, vascular surgery will see the patient in consultation. Barry Cartwright MD Sep 25, 2016 14:17
[2016-09-25] MEDS ORDERED: SENNOSIDES 8.6 MG TAB PO PRN (15:00)
--- NOTE | 2016-09-25 15:22 | RADRPT ---
EXAM DATE/TIME: 09/25/2016 13:53 [facility] COMPARISON: CHEST SINGLE AP, September 25, 2016, 11:34. INDICATIONS : Central Line placement. MEDICAL HISTORY : unobtainable. SURGICAL HISTORY : unobtainable. ENCOUNTER: Initial ACUITY: 1 day PAIN SCORE: Non-responsive. LOCATION: Chest. FINDINGS: Compared to the earlier exam there has been interval placement of a right subclavian central venous c atheter and a nasogastric tube both of which are in good position. Endotracheal tube is in stable position. Heart is moderately enlarged. AICD device is noted in place. Lungs remain clear. There is no evidence of pneumothorax CONCLUSION: Status post placement of right-sided central venous catheter which is in good position; no evidence o f pneumothorax. Satisfactory position of nasogastric tube. Otherwise stable chest without evidence of acute process. Tima Membreno MD on September 25, 2016 at 15:18 Board Certified Radiologist. This report was verified electronically.
[2016-09-25] MEDS: 3% SALINE INJ 500 ML IV SCH (16:56)
[2016-09-25] MEDS: ARTIFICIAL TEARS OPTH SOLN 15 ML BTL EACH EYE SCH (18:00)
--- NOTE | 2016-09-25 19:15 | MB ---
cc: CHEIKH GRIFFIN DATE OF CONSULTATION 09/25/16 REASON FOR CONSULTATION Right cerebral hemorrhage. HISTORY OF PRESENT ILLNESS An 81-year-old female who [facility] in a [facility] with significant medical comorbidities. She had an acute decline in her mental status initially complained of a headache and then became unresponsive and she presented to the emergency room with a [place] coma score of three, unable to protect her airway. She was intubated. She was also very hypertensive on her presentation with a systolic blood pressure 231 and diastolic 154 initially. She was placed on a Cardene drip and a CT scan of the head obtained reveals large right cerebral hemorrhage involving the frontoparietal temporal lobes measuring 8.4 x 4.8 cm with a 1.9 cm [id number] midline shift. The hemorrhage also extends to some extent in the subarachnoid and subdural space. She is on chronic Coumadin therapy with an elevated PT/INR of 28.1 and INR 2.4. PAST MEDICAL HISTORY 1. Atrial fibrillation, 2. Aortic stenosis, 3. Ischemic cardiomyopathy with a very poor ejection fraction, 4. COPD, 5. Diabetes mellitus, 6. Chronic kidney disease stage IV, 7. Urinary incontinence, 8. Coronary artery disease, 9. Seizures, 10. Stroke, 11. Hysterectomy, 12. Pacemaker in place, 13. Left hemicolectomy with lymph node dissection MEDICATIONS 1. Bumex 1 mg daily, 2. PhosLo 667 mg t.i.d. 3. Coreg 3.125 mg b.i.d., 4. Vitamin D 1000 units B.i.d., 5. Colace 100 mg b.i.d., 6. Iron sulfate 325 mg daily, 7. [place] 7.5/325 q 8 h p.r.n. 8. Isosorbide 10 mg b.i.d. 9. Ativan 0.25 mg q.6 h p.r.n., 10. Ditropan 5 mg daily 11. Restoril 15 mg q.h.s., 12. Coumadin 5 mg daily ALLERGIES NO KNOWN DRUG ALLERGIES. SOCIAL HISTORY Former smoker and no alcohol use, resides in a prison. She is a . Her daughter and granddaughter are here with her at the bedside. REVIEW OF SYSTEMS Unobtainable. The patient is comatose and unresponsive. LABORATORY FINDINGS PT 28.1, INR 2.4, PTT 31.7, fibrinogen 320, white blood cell count 6.4, hemoglobin 11.2, platelet count 148. Sodium 140, potassium 4.4, BUN 76, creatinine 2.5, glucose 143. PHYSICAL EXAMINATION VITAL SIGNS: Pulse is 61, respiratory rate is 48 and blood pressure is usually running in the systolic 160s to 180s on Cardene drip. HEAD: No Youngblood's or raccoon sign. NECK: Supple. Endotracheal tube in place. CHEST: Clear bilaterally HEART: Irregular rhythm with bradycardia. ABDOMEN: Soft, nontender. She is obese. EXTREMITIES: No cyanosis. She does have moderate edema. NEUROLOGIC: She does not open her eyes. Pupils - the left is 5 mm and nonreactive, right is 6 mm and nonreactive with cataracts. She has positive corneals. Negative gag and cough reflex. She has decerebrate postures to painful stimulation. [place] coma score is a four with loss of some brainstem reflexes. IMPRESSION 1. Extensive right hemisphere hemorrhage involving the frontoparietal temporal lobes with mass effect and midline shift. Patient with coagulopathy on chronic Coumadin therapy. 2. Atrial fibrillation on Coumadin therapy. 3. Severe cardiomyopathy with poor ejection fraction 4. Renal failure. 5. Diabetes mellitus 6. COPD 7. Unregulated hypertension. PLAN Unfortunately, this is not a salvageable condition and will not benefit from any neurosurgical intervention at this point even if her INR was corrected in due time. I have discussed this with the patient's daughter and granddaughter and they will also review with the rest of her family and the daughter seems to be inclined to withdraw supportive care with comfort measures at some point if the family agrees. In the meantime, we will continue with supportive care. MD DANILO San/ /4:17 PM /6:58 PM
[2016-09-25 19:40] LABS: APTT (PATIENT) 29.5 SEC (24.3-30.1); INTERNATIONAL NORMALIZED RATIO 1.4 RATIO; PROTHROMBIN TIME - PATIENT 15.8 SEC (9.8-11.6)
[2016-09-25] MEDS: CHLORHEXIDINE 0.12% (ORAL KIT) 15 ML CUP MT SCH (20:13)
[2016-09-25] MEDS: DOCUSATE SODIUM 100 MG CAP PO SCH (20:18)
[2016-09-25] MEDS: levETIRAcetam INJ 500 MG in SODIUM CHLORIDE 0.9% INJ 100 ML IV SCH (20:18)
[2016-09-25] MEDS: SODIUM CHLORIDE 0.9% FLUSH 5 ML FLUSH IV FLUSH SCH (20:19)
[2016-09-25] MEDS: niCARdipine INJ 25 MG in SODIUM CHLOR 0.9% 250 ML INJ 250 ML IV SCH (20:23)
[2016-09-26] VITALS (21 sets, daily range): BP systolic 122–140; BP diastolic 58–66; PULSE 69–91; RESP 14; TEMP 96.1–100.8; O2SAT 100
[2016-09-26] MEDS: SODIUM CHLOR 0.9% 1000 ML INJ 1,000 ML IV SCH ×3 (00:48→19:54)
[2016-09-26 03:48] LABS: AUTOMATED NEUTROPHIL # 5.4 TH/MM3 (1.8-7.7); BASOPHIL % 0.5 % (0.0-2.0); EOSINOPHIL # 0.1 TH/MM3 (0-0.4); EOSINOPHIL % 0.8 % (0.0-4.0); HEMATOCRIT 31.4 % (35.0-46.0); HEMO FLAGS DIFF FINAL; LYMPH % 11.8 % (9.0-44.0); LYMPHOCYTE # 0.9 TH/MM3 (1.0-4.8); MEAN CELL VOLUME 80.9 FL (80.0-100.0); MEAN CORPUSCULAR HEMOGLOBIN 26.6 PG (27.0-34.0); MEAN CORPUSCULAR HGB CONC 32.9 % (32.0-36.0); MONO % 13.6 % (0.0-8.0); NEUT % 73.3 % (16.0-70.0); PLATELET COUNT 117 TH/MM3 (150-450); RED BLOOD COUNT 3.88 MIL/MM3 (4.00-5.30); RED CELL DISTRIBUTION WIDTH 18.6 % (11.6-17.2); WHITE BLOOD COUNT 7.4 TH/MM3 (4.0-11.0)
[2016-09-26] MEDS: CHLORHEXIDINE GLUCONATE 2 % 1 PACK (2 CLOTHS) TOP SCH (03:50)
[2016-09-26] MEDS: niCARdipine INJ 25 MG in SODIUM CHLOR 0.9% 250 ML INJ 250 ML IV SCH ×4 (03:51→19:51)
[2016-09-26] MEDS: 3% SALINE INJ 500 ML IV SCH (03:53)
[2016-09-26 04:00] LABS: APTT (PATIENT) 29.9 SEC (24.3-30.1); INTERNATIONAL NORMALIZED RATIO 1.4 RATIO; PROTHROMBIN TIME - PATIENT 15.4 SEC (9.8-11.6)
[2016-09-26 04:26] LABS: ALKALINE PHOSPHATASE 65 U/L (45-117); ALT (GPT) 19 U/L (10-53); ANION GAP 8 MEQ/L (5-15); AST (GOT) 28 U/L (15-37); BICARBONATE 25.6 MEQ/L (21.0-32.0); BLOOD UREA NITROGEN 62 MG/DL (7-18); CHLORIDE 121 MEQ/L (98-107); GLOMERULAR FILTRATION RATE 23 ML/MIN (>89); MAGNESIUM 2.2 MG/DL (1.5-2.5); POTASSIUM 3.6 MEQ/L (3.5-5.1); SODIUM (NA) 155 MEQ/L (136-145); TOTAL BILIRUBIN ADULT 0.9 MG/DL (0.2-1.0)
--- NOTE | 2016-09-26 04:47 | RADRPT ---
EXAM DATE/TIME: 09/26/2016 04:17 [facility] COMPARISON: CT BRAIN W/O CONTRAST, September 25, 2016, 11:27. INDICATIONS : Follow up right hemorrhagic stroke with midline shift RADIATION DOSE: 56.35 CTDIvol (mGy) MEDICAL HISTORY : Cerebrovascular disease. Chronic obstructive pulmonary disease. Congestive heart failure.Cardiovascul ar disease. Atrial fibrillation. Renal disease. Diabetes. SURGICAL HISTORY : Pacemaker. Hysterectomy. ENCOUNTER: Subsequent ACUITY: 2 days PAIN SCALE: Non-responsive LOCATION: Right cranial TECHNIQUE: Multiple contiguous axial images were obtained of the head. Using automated exposure control and adj ustment of the mA and/or kV according to patient size, radiation dose was kept as low as reasonably a chievable to obtain optimal diagnostic quality images. FINDINGS: There is been interval increase in the size of the large parenchymal hemorrhage in the right hemisphe re, with a new component now crossing the midline in the region of the corpus callosum. There has be en increase in the amount of midline shift, now measuring 2.2 cm (previously measured 1.9 cm. Subdur al and subarachnoid hemorrhage the right hemisphere is similar to prior. Interval development of pro minent layering blood in the lung left lateral ventricle occipital horn and the left lateral ventricl e is larger than on prior exam. There is also intraventricular blood in the face right occipital hor n. There also new areas of hyperdensity in the sulci of the left mid convexity sylvian and parietal piotr on suggesting interval development of subarachnoid hemorrhage on the left side. There is also a new focal area of hemorrhage adjacent to the left mid falx measuring 4 mm. The posterior fossa structures are intact. CONCLUSION: Increasing right parenchymal hemorrhage, now extending across the midline. Interval development of b ilateral intraventricular blood, increased right to left shift and interval development of areas of s ubarachnoid hemorrhage in the left hemisphere. Nelson Boyer MD on September 26, 2016 at 4:40 Board Certified Radiologist. This report was verified electronically.
[2016-09-26 05:31] LABS: BLOOD GAS BASE EXCESS 0.5 mmol/L (-2-2); BLOOD GAS CARBOXYHEMOGLOBIN 1.4 % (0-4); BLOOD GAS HCO3 23 mmol/L (22-26); BLOOD GAS METHEMOGLOBIN 0.9 % (0-2); BLOOD GAS O2 HGB SATURATION 97 % (90-100); BLOOD GAS OXYGEN CONTENT 15.3 Vol % (12.0-20.0); BLOOD GAS PCO2 25 mmHg (38-42); BLOOD GAS PO2 191 mmHg (61-120); BLOOD GAS TOTAL HGB 10.9 G/DL (12.0-16.0); CRITICAL VALUE YES; OXYGEN DEVICE VENTILATOR; TEMP CORR TO 98.6
[2016-09-26 05:32] LABS: DRAW SITE RT RADIAL; FIO2 40 %; NUMBER OF ARTERIAL PUNCTURES 1; STAT NO; ULNAR PULSE PRESENT; VENT SETTINGS PRVC/AC
[2016-09-26] MEDS: CHLORHEXIDINE 0.12% (ORAL KIT) 15 ML CUP MT SCH ×2 (08:00→19:52)
[2016-09-26] MEDS: DOCUSATE SODIUM 100 MG CAP PO SCH ×2 (08:24→19:51)
[2016-09-26] MEDS: PANTOPRAZOLE SODIUM 40 MG VIAL IV SCH (08:30)
[2016-09-26] MEDS: levETIRAcetam INJ 500 MG in SODIUM CHLORIDE 0.9% INJ 100 ML IV SCH ×2 (08:30→19:51)
[2016-09-26] MEDS: SODIUM CHLORIDE 0.9% FLUSH 5 ML FLUSH IV FLUSH SCH ×2 (08:30→19:52)
[2016-09-26] MEDS: ARTIFICIAL TEARS OPTH SOLN 15 ML BTL EACH EYE SCH ×3 (08:57→17:40)
--- NOTE | 2016-09-26 10:30 | HHI.NSPN ---
Subjective History 81-year-old female who resides in a [facility] with significant medical comorbidities. She had an acute decline in her mental status initially complained of a headache and then became unresponsive and she presented to the emergency room with a Crystal coma score of three, unable to protect her airway. She was intubated. She was also very hypertensive on her presentation with a systolic blood pressure 231 and diastolic 154 initially. She was placed on a Cardene drip and a CT scan of the head obtained reveals large right cerebral hemorrhage involving the frontoparietal temporal lobes measuring 8.4 x 4.8 cm with a 1.9 cm [id number] midline shift. The hemorrhage also extends to some extent in the subarachnoid and subdural space. She is on chronic Coumadin therapy with an elevated PT/INR. She has received the FFP, vitamin K, and K Centra as per the pre sales systems engineer. 09/26/16: No change or improvement in neurologic examination with follow-up CT scan the head worsening hemorrhage and developing strokes. Vitals . Vital Signs Date Time Temp Pulse Resp B/P Pulse Ox O2 Delivery O2 Flow Rate FiO2 09/26/16 07:50 100 30 09/26/16 07:50 100 30 09/26/16 06:00 77 09/26/16 05:30 100 40 09/26/16 04:24 100 100 09/26/16 04:01 100 40 09/26/16 04:01 100 40 09/26/16 04:00 69 09/26/16 04:00 40 09/26/16 04:00 97.6 80 14 122/59 100 09/26/16 02:00 79 09/26/16 01:09 100 40 09/26/16 00:00 40 09/26/16 00:00 100.8 77 14 125/60 100 09/26/16 00:00 74 09/25/16 22:00 81 09/25/16 21:04 100 40 09/25/16 20:00 98.6 80 14 128/59 100 09/25/16 20:00 40 09/25/16 20:00 74 09/25/16 20:00 100 Mechanical Ventilator 40 09/25/16 18:00 76 09/25/16 16:21 100 40 09/25/16 16:00 64 09/25/16 16:00 93.4 64 14 120/56 100 09/25/16 15:10 100 40 09/25/16 14:07 58 167/74 100 09/25/16 14:00 58 09/25/16 13:40 100 100 09/25/16 13:27 57 202/86 09/25/16 13:18 55 222/93 09/25/16 12:14 58 194/80 09/25/16 11:39 66 176/79 100 09/25/16 11:36 70 174/76 100 09/25/16 11:28 63 157/73 100 09/25/16 11:25 63 158/72 100 09/25/16 11:22 69 182/74 100 09/25/16 11:20 100 100 09/25/16 11:18 61 206/91 09/25/16 11:12 100 Ventilator 100 09/25/16 11:12 100 100 09/25/16 11:10 83 184/113 100 09/25/16 10:59 76 231/154 100 09/25/16 09/25/16 09/26/16 15:00 23:00 07:00 Intake Total 1263 ml 1309 ml Output Total 1200 ml 981 ml Balance 63 ml 328 ml Physical Exam Head Head: Atraumatic Eyes Eyes Remarks Right pupil is 5 mm and nonreactive and left is 4 and nonreactive Neuro Mental Status: Comatosed Pupils: Right Nonreactive, Left Nonreactive Crystal Coma Scale Best Eye Openin - None Best Verbal: 1 - None Best Motor: 3 - Flexion/decorticate Neuro Remarks Does not open eyes Pupils nonreactive Positive corneals Negative gag and cough reflex Weak withdrawal to pain Cardiac Cardiac: A-fib Respiratory Respiratory: CTA Gastrointestinal Gastrointestinal: Soft, Nontender Bowel Sounds: Diminished Genitourinary Genitourinary: Lees Catheter In Place Musculoskeletal Musculoskeletal: Left Hemiplegic Extremities Upper Extremities Deltoid Bicep Tricep HI W. Ext Right Left Lower Extremeties Ilio Quad Plantar Dorsi EHL Right Left Dermatologic Dermatologic: Skin Intact Extremities Edema: Edematous, SCDs Objective Labs Laboratory Tests 09/25/16 10:50 09/25/16 18:30 09/25/16 23:49 09/26/16 03:30 Laboratory Tests Test 09/25/16 09/25/16 09/25/16 09/26/16 10:50 18:30 23:49 03:30 Bedside Sodium 140 MMOL/L Bedside Potassium 4.4 MMOL/L Bedside Chloride 105 MMOL/L Bedside Blood Urea Nitrogen 76 MG/DL Bedside Creatinine 2.5 MG/DL Bedside Glucose 143 MG/DL Phosphorus Level 3.7 MG/DL 2.3 MG/DL Magnesium Level 2.3 MG/DL 2.2 MG/DL Total Bilirubin 0.4 MG/DL 0.9 MG/DL Direct Bilirubin 0.2 MG/DL Indirect Bilirubin 0.2 MG/DL Aspartate Amino Transf 38 U/L 28 U/L (AST/SGOT) Alanine Aminotransferase 21 U/L 19 U/L (ALT/SGPT) Alkaline Phosphatase 61 U/L 65 U/L Total Creatine Kinase 230 U/L Creatine Kinase MB 2.9 NG/ML Creatine Kinase MB % 1.3 % Total Protein 7.6 GM/DL 7.0 GM/DL Albumin 3.5 GM/DL 3.2 GM/DL Sodium Level 143 MEQ/L 151 MEQ/L 155 MEQ/L Serum Osmolality 325 MOSM/KG 333 MOSM/KG 340 MOSM/KG Potassium Level 3.6 MEQ/L Chloride Level 121 MEQ/L Carbon Dioxide Level 25.6 MEQ/L Anion Gap 8 MEQ/L Blood Urea Nitrogen 62 MG/DL Creatinine 2.46 MG/DL Estimat Glomerular Filtration 23 ML/MIN Rate Random Glucose 119 MG/DL Lactic Acid Level 1.4 mmol/L Calcium Level 9.3 MG/DL Imaging Remarks Last Impressions Head CT 09/26/16 0000 Signed Impressions: Service Date/Time: Monday, September 26, 2016 04:17 - CONCLUSION: Increasing right parenchymal hemorrhage, now extending across the midline. Interval development of bilateral intraventricular blood, increased right to left shift and interval development of areas of subarachnoid hemorrhage in the left hemisphere. Nelson Boyer MD Chest X-Ray 09/25/16 0000 Signed Impressions: Service Date/Time: September 13:53 - CONCLUSION: Status post placement of right-sided central venous catheter which is in good position; no evidence of pneumothorax. Satisfactory position of nasogastric tube. Otherwise stable chest without evidence of acute process. Tima Membreno MD Assessment & Plan Assessment 1. Extensive right hemisphere hemorrhage involving the frontoparietal temporal lobes with mass effect and midline shift. Patient with coagulopathy on chronic Coumadin therapy suboptimally corrected with FFP, vitamin K and Concentra. 2. Atrial fibrillation on Coumadin therapy. 3. Severe cardiomyopathy with poor ejection fraction 4. Renal failure. 5. Diabetes mellitus 6. COPD 7. Unregulated hypertension. Plan Her cerebral hemorrhages have worsened along with developing strokes and this remains a non-salvageable insult. There is not much that we can offer from a neurosurgical standpoint and will affect her outcome. Timmy Leavitt MD Sep 26, 2016 10:30
--- NOTE | 2016-09-26 16:42 | HHI.CCPN ---
Subjective Remarks/Hospital Course 81-year-old female. Date of admission 09/25/2016. Past medical history includes CVA, seizure, coronary artery disease, atrial fibrillation, aortic stenosis, ischemic cardiopathy ejection fraction between 10 and 20%, atrial fibrillation, COPD, diabetes mellitus, chronic kidney disease stage IV, osteoarthritis, and urinary incontinence. She is a resident of [facility]. She is admitted after expressing a significant headache at her [facility]. She had rapid decline in mental status was transferred to [facility]. She is noted to have a significant right hemispheric hemorrhage with extension to the intraventricular space. She was hypertensive with systolic blood pressure 2:30 with INR 2.4 as she is on Coumadin for atrial fibrillation. Subjective 09/26: Afebrile. Currently not responsive on the ventilator. Cardene drip at 10 mg an hour. Tube feeds will be initiated. No bowel movement. No family available at bedside. Objective Vital Signs Date Time Temp Pulse Resp B/P Pulse Ox O2 Delivery O2 Flow Rate FiO2 09/26/16 13:12 100 30 09/26/16 12:00 82 09/26/16 12:00 98.6 14 133/63 09/25/16 20:00 Mechanical Ventilator Intake and Output 09/25/16 09/25/16 09/26/16 08:00 16:00 00:00 Intake Total 1263 ml Output Total 1200 ml Balance 63 ml Result Diagram: 09/26/16 0330 09/26/16 1250 Imaging Last Impressions Head CT 09/26/16 0000 Signed Impressions: Service Date/Time: Monday, September 26, 2016 04:17 - CONCLUSION: Increasing right parenchymal hemorrhage, now extending across the midline. Interval development of bilateral intraventricular blood, increased right to left shift and interval development of areas of subarachnoid hemorrhage in the left hemisphere. Nelson Boyer MD Chest X-Ray 09/25/16 0000 Signed Impressions: Service Date/Time: September 13:53 - CONCLUSION: Status post placement of right-sided central venous catheter which is in good position; no evidence of pneumothorax. Satisfactory position of nasogastric tube. Otherwise stable chest without evidence of acute process. Tima Membreno MD Objective Remarks GENERAL: 81-year-old female, critically ill, currently orotracheally intubated. SKIN: Warm and dry. No rash HEAD: Atraumatic. Normocephalic. EYES: Pupils equal and round about 3 mm bilaterally and reactive. No scleral icterus. No injection or drainage. ENT: No nasal bleeding or discharge. Mucous membranes pink and moist. NECK: Trachea midline. No JVD. CARDIOVASCULAR: IR/pacer, S1, S2. No S4. 2/6 systolic murmur sternal border RESPIRATORY: Diminished but essentially clear to auscultation bilaterally. Breath sounds equal bilaterally. GASTROINTESTINAL: Abdomen soft, non-tender, nondistended. Hypoactive bowel sounds are appreciated. MUSCULOSKELETAL: Extremities without significant peripheral edema. No obvious deformities. NEUROLOGICAL: Positive corneal effects. Positive gag. Moved left upper and lower extremity to noxious stimuli. Right upper and lower extremity essentially flaccid. A/P Assessment and Plan Neuro/Psych: Right hemorrhagic intracerebral hemorrhage 8.4 x 4.8 cm with subdural and subarachnoid hemorrhage with a 1.9 cm right to left shift History CVA History of seizures History of CVA Insomnia Chronic benzodiazepine use Propofol/fentanyl for sedation/analgesia while intubated Goal of RA SS -2 No daily sedation vacation CT head on admission revealed a right hemorrhagic CVA 8.4 x 4 point centimeters with concurrent subdural hematoma/subarachnoid hemorrhage with 1.9 similar right to left shift. Dr. Leavitt/neurosurgery consulted . There is no intervention. 3% saline at 30 cc an hour with serial sodiums every 6 hours goal sodium 150- 155. This will be held as sodium is Currently 163. Keppra 1 g loaded with 500 twice a day for seizure prophylaxis Recheck CT head in revealed worsening of right intraparenchymal hemorrhage. Currently 2.2 cm midline shift. New left intraventricular hemorrhage and left lateral occipital horn ventricle blood seen Will keep systolic blood pressure less than 140 Cardene drip Hold home medication Restoril 15 mg at night for insomnia Holding Ativan 0.25 mg every 6 hours as needed for anxiety CV: Hypertensive emergency Coronary artery disease Ischemic coronary mouth ejection fraction 20% by echo History H fibrillation Status post post pacemaker with AICD with replacement 2015 Currently on Cardene drip to maintain systolic blood pressure less than 140 As needed labetalol/hydralazine ordered Resume Coreg 3. 125 mg twice a day for hypertension. Echocardiogram 04/04 revealed EF 20%. Systolic function severely reduced. Left ventricle dilated. Aortic valve with moderate stenosis. Mild MR. Mild TR. BASSAM 50 mmHg Holding Bumex 1 mg by mouth daily. Resume when clinically indicated Resp: Acute respiratory failure History COPD ACV 14/500/5/30 Goal end tidal CO2 between 30 and 35 Ventilator bundle As needed bronchodilator therapy Follow-up chest x-ray in a.m. Joe breathing trials when clinically indicated GI: Start tube feeding with vital 1.5 goal 50 cc an hour Protonix for GI prophylaxis Colace/as needed Senokot for bowel regimen : Urinary incontinence Holding Ditropan 5 mg by mouth twice a day Lees will be placed for accurate I's and O's in a critically ill patient Endo: Diabetes mellitus Sliding scale insulin with Accu-Cheks to maintain euglycemia/every 6 hours moderate regimen Renal: Chronic kidney disease stage IV Creatinine currently 2.5. Baseline appears around 3. Currently on normal saline at 84 cc an hour. Follow-ups BMP in a.m. Heme: Normocytic anemia Thrombocytopenia Chronic Coumadin use Status post 10 mg vitamin K, 1500 K Centra and 3 units FFP. Recheck coags this evening Obvious holding Coumadin 5 mg by mouth daily INRs still supratherapeutic at 1.4. Give vitamin K and FFP and today. ID: Monitor for infection MSK: Osteoarthritis Holding vitamin D 1000 units by mouth twice a day FEN: Replace electrolytes as clinically indicated Access - Right subclavian CVL day 2 Prophylaxis - GI - Protonix - DVT - SCD/pharmacological prophylaxis contra indicated with intracerebral hemorrhage Critical Care: The total critical care time was 35 minutes. Time to perform other separately billable procedures was not included in the critical care time. Prognosis is very poor Barry Cartwright MD Sep 26, 2016 16:42
[2016-09-26] MEDS ORDERED: PHYTONADIONE 5 MG TAB PO ONE (17:00)
[2016-09-26] MEDS: CARVEDILOL 6.25 MG TAB PO SCH (19:51)
--- NOTE | 2016-09-26 20:17 | EKG ---
Date Performed: 09/25/2016 Time Performed: 11:46:21 PTAGE: 81 years EKG: Sinus rhythm LEFT VENTRICULAR HYPERTROPHY AND ST-T CHANGE UNGULATED BASELINE ABNORMAL ECG PREVIOUS TRACING : 03/21/2016 06.11 Compared to prior tracing no significant change DOCTOR: Arpit Bess Interpretating Date/Time 09/26/2016 20:16:34
[2016-09-27] VITALS (11 sets, daily range): BP systolic 127–152; BP diastolic 56–69; PULSE 66–87; RESP 14–17; TEMP 97.9–100.8; O2SAT 32–100
[2016-09-27] MEDS: CHLORHEXIDINE GLUCONATE 2 % 1 PACK (2 CLOTHS) TOP SCH (04:00)
[2016-09-27] MEDS: niCARdipine INJ 25 MG in SODIUM CHLOR 0.9% 250 ML INJ 250 ML IV SCH ×2 (05:12→08:49)
--- NOTE | 2016-09-27 05:55 | RADRPT ---
EXAM DATE/TIME: 09/27/2016 04:31 [facility] COMPARISON: CHEST SINGLE AP, September 25, 2016, 13:53. INDICATIONS : Shortness of breath. MEDICAL HISTORY : Chronic obstructive pulmonary disease. Congestive heart failure. SURGICAL HISTORY : Pacemaker. ENCOUNTER: Subsequent ACUITY: 3 days PAIN SCORE: Non-responsive. LOCATION: Bilateral chest FINDINGS: Endotracheal tube tip is 1.4 cm above the raic. Gastric tube traverses the [id number]. Right s ubclavian catheter tip projects over the cavoatrial junction. Cardiac pacer leads stable. The lungs are clear without focal infiltrate. No evidence of pneumothorax. CONCLUSION: 1. No infiltrates seen. 2. ET tube is now 1.4 cm above the aric and needs to be withdrawn 1 cm. Nelson Boyer MD on September 27, 2016 at 5:53 Board Certified Radiologist. This report was verified electronically.
[2016-09-27 06:20] LABS: BLOOD GAS BASE EXCESS -4.5 mmol/L (-2-2); BLOOD GAS CARBOXYHEMOGLOBIN 1.6 % (0-4); BLOOD GAS HCO3 18 mmol/L (22-26); BLOOD GAS METHEMOGLOBIN 1.2 % (0-2); BLOOD GAS O2 HGB SATURATION 96 % (90-100); BLOOD GAS OXYGEN CONTENT 15.6 Vol % (12.0-20.0); BLOOD GAS PCO2 25 mmHg (38-42); BLOOD GAS PO2 113 mmHg (61-120); BLOOD GAS TOTAL HGB 11.5 G/DL (12.0-16.0); TEMP CORR TO 98.6
[2016-09-27 06:21] LABS: CRITICAL VALUE NO; FIO2 30 %; OXYGEN DEVICE VENTILATOR; VENT SETTINGS PRVC
[2016-09-27 06:22] LABS: DRAW SITE LT RADIAL; NUMBER OF ARTERIAL PUNCTURES 3; STAT NO; ULNAR PULSE PRESENT
[2016-09-27 06:31] LABS: AUTOMATED NEUTROPHIL # 12.2 TH/MM3 (1.8-7.7); BASOPHIL # 0.1 TH/MM3 (0-0.2); BASOPHIL % 0.4 % (0.0-2.0); EOSINOPHIL % 0.1 % (0.0-4.0); HEMATOCRIT 33.7 % (35.0-46.0); HEMO FLAGS DIFF FINAL; MEAN CELL VOLUME 82.7 FL (80.0-100.0); MEAN CORPUSCULAR HEMOGLOBIN 26.2 PG (27.0-34.0); MEAN CORPUSCULAR HGB CONC 31.6 % (32.0-36.0); NEUT % 82.5 % (16.0-70.0); PLATELET COUNT 114 TH/MM3 (150-450); RED BLOOD COUNT 4.08 MIL/MM3 (4.00-5.30); WHITE BLOOD COUNT 14.8 TH/MM3 (4.0-11.0)
[2016-09-27 06:55] LABS: ALKALINE PHOSPHATASE 67 U/L (45-117); ALT (GPT) 18 U/L (10-53); ANION GAP 10 MEQ/L (5-15); AST (GOT) 38 U/L (15-37); BICARBONATE 20.2 MEQ/L (21.0-32.0); BLOOD UREA NITROGEN 46 MG/DL (7-18); CHLORIDE 133 MEQ/L (98-107); GLOMERULAR FILTRATION RATE 23 ML/MIN (>89); MAGNESIUM 2.1 MG/DL (1.5-2.5); POTASSIUM 3.5 MEQ/L (3.5-5.1); TOTAL BILIRUBIN ADULT 0.9 MG/DL (0.2-1.0)
[2016-09-27 07:06] LABS: SODIUM (NA) 163 MEQ/L (136-145)
[2016-09-27 07:19] LABS: INTERNATIONAL NORMALIZED RATIO 1.3 RATIO; PROTHROMBIN TIME - PATIENT 14.9 SEC (9.8-11.6)
[2016-09-27] MEDS: CHLORHEXIDINE 0.12% (ORAL KIT) 15 ML CUP MT SCH (08:00)
[2016-09-27] MEDS: levETIRAcetam INJ 500 MG in SODIUM CHLORIDE 0.9% INJ 100 ML IV SCH (08:49)
[2016-09-27] MEDS: CARVEDILOL 6.25 MG TAB PO SCH (08:50)
[2016-09-27] MEDS: DOCUSATE SODIUM 100 MG CAP PO SCH (08:50)
[2016-09-27] MEDS: PANTOPRAZOLE SODIUM 40 MG VIAL IV SCH (08:50)
[2016-09-27] MEDS: SODIUM CHLORIDE 0.9% FLUSH 5 ML FLUSH IV FLUSH SCH (08:51)
[2016-09-27] MEDS: ARTIFICIAL TEARS OPTH SOLN 15 ML BTL EACH EYE SCH (08:51)
--- NOTE | 2016-09-27 11:28 | HHI.CCPN ---
Subjective Remarks/Hospital Course 81-year-old female. Date of admission 09/25/2016. Past medical history includes CVA, seizure, coronary artery disease, atrial fibrillation, aortic stenosis, ischemic cardiopathy ejection fraction between 10 and 20%, atrial fibrillation, COPD, diabetes mellitus, chronic kidney disease stage IV, osteoarthritis, and urinary incontinence. She is a resident of [facility]. She is admitted after expressing a significant headache at her detention. She had rapid decline in mental status was transferred to [facility]. She is noted to have a significant right hemispheric hemorrhage with extension to the intraventricular space. She was hypertensive with systolic blood pressure 2:30 with INR 2.4 as she is on Coumadin for atrial fibrillation. 09/26: Afebrile. Currently not responsive on the ventilator. Cardene drip at 10 mg an hour. Tube feeds will be initiated. No bowel movement. No family available at bedside. Subjective 09/27: Tmax 1.8. Unresponsive the ventilator. Plan for withdrawal care today. Objective Vital Signs Date Time Temp Pulse Resp B/P Pulse Ox O2 Delivery O2 Flow Rate FiO2 09/27/16 10:00 75 09/27/16 08:09 97 30 09/27/16 08:00 100.8 17 133/63 09/25/16 20:00 Mechanical Ventilator Intake and Output 09/26/16 09/26/16 09/27/16 08:00 16:00 00:00 Intake Total 1309 ml 1485 ml 986 ml Output Total 981 ml 1225 ml 550 ml Balance 328 ml 260 ml 436 ml Result Diagram: 09/27/16 0615 09/27/16 0615 Imaging Last Impressions Head CT 09/26/16 0000 Signed Impressions: Service Date/Time: Monday, September 26, 2016 04:17 - CONCLUSION: Increasing right parenchymal hemorrhage, now extending across the midline. Interval development of bilateral intraventricular blood, increased right to left shift and interval development of areas of subarachnoid hemorrhage in the left hemisphere. Nelson Boyer MD Chest X-Ray 09/25/16 0000 Signed Impressions: Service Date/Time: September 13:53 - CONCLUSION: Status post placement of right-sided central venous catheter which is in good position; no evidence of pneumothorax. Satisfactory position of nasogastric tube. Otherwise stable chest without evidence of acute process. Tima Membreno MD Objective Remarks GENERAL: 81-year-old female, critically ill, currently orotracheally intubated. SKIN: Warm and dry. No rash HEAD: Atraumatic. Normocephalic. EYES: Pupils equal and round about 3 mm bilaterally and reactive. No scleral icterus. No injection or drainage. ENT: No nasal bleeding or discharge. Mucous membranes pink and moist. NECK: Trachea midline. No JVD. CARDIOVASCULAR: IR/pacer, S1, S2. No S4. 2/6 systolic murmur sternal border RESPIRATORY: Diminished but essentially clear to auscultation bilaterally. Breath sounds equal bilaterally. GASTROINTESTINAL: Abdomen soft, non-tender, nondistended. Hypoactive bowel sounds are appreciated. MUSCULOSKELETAL: Extremities without significant peripheral edema. No obvious deformities. NEUROLOGICAL: Positive corneal effects. Positive gag. Moved left upper and lower extremity to noxious stimuli. Right upper and lower extremity essentially flaccid. A/P Assessment and Plan Neuro/Psych: Right hemorrhagic intracerebral hemorrhage 8.4 x 4.8 cm with subdural and subarachnoid hemorrhage with a 1.9 cm right to left shift History CVA History of seizures History of CVA Insomnia Chronic benzodiazepine use Propofol/fentanyl for sedation/analgesia while intubated Goal of RASS -2 No daily sedation vacation CT head on admission revealed a right hemorrhagic CVA 8.4 x 4 point centimeters with concurrent subdural hematoma/subarachnoid hemorrhage with 1.9 similar right to left shift. Dr. Leavitt/neurosurgery consulted . There is no intervention. 3% saline at 30 cc an hour with serial sodiums every 6 hours goal sodium 150- 155. Is been held as sodium is Currently 163. Keppra 1 g loaded with 500 twice a day for seizure prophylaxis Recheck CT head in revealed worsening of right intraparenchymal hemorrhage. Currently 2.2 cm midline shift. New left intraventricular hemorrhage and left lateral occipital horn ventricle blood seen Will keep systolic blood pressure less than 140 Cardene drip Hold home medication Restoril 15 mg at night for insomnia Holding Ativan 0.25 mg every 6 hours as needed for anxiety CV: Hypertensive emergency Coronary artery disease Ischemic coronary mouth ejection fraction 20% by echo History H fibrillation Status post post pacemaker with AICD with replacement 2016 Currently on Cardene drip to maintain systolic blood pressure less than 140 As needed labetalol/hydralazine ordered Resume Coreg 3. 125 mg twice a day for hypertension. Echocardiogram 04/04 revealed EF 20%. Systolic function severely reduced. Left ventricle dilated. Aortic valve with moderate stenosis. Mild MR. Mild TR. BASSAM 50 mmHg Holding Bumex 1 mg by mouth daily. Resume when clinically indicated Resp: Acute respiratory failure History COPD ACV 14/500/5/30 Goal end tidal CO2 between 30 and 35 Ventilator bundle As needed bronchodilator therapy Follow-up chest x-ray in a.m. Joe breathing trials when clinically indicated GI: Start tube feeding with vital 1.5 goal 50 cc an hour Protonix for GI prophylaxis Colace/as needed Senokot for bowel regimen : Urinary incontinence Holding Ditropan 5 mg by mouth twice a day Lees will be placed for accurate I's and O's in a critically ill patient Endo: Diabetes mellitus Sliding scale insulin with Accu-Cheks to maintain euglycemia/every 6 hours moderate regimen Renal: Chronic kidney disease stage IV Creatinine currently 2.5. Baseline appears around 3. Currently on normal saline at 84 cc an hour. Follow-ups BMP in a.m. Heme: Normocytic anemia Thrombocytopenia Chronic Coumadin use Status post 10 mg vitamin K, 1500 K Centra and 3 units FFP. Recheck coags this evening Obvious holding Coumadin 5 mg by mouth daily INRs still supratherapeutic at 1.4. Give vitamin K and FFP and today. ID: Monitor for infection MSK: Osteoarthritis Holding vitamin D 1000 units by mouth twice a day FEN: Replace electrolytes as clinically indicated Access - Right subclavian CVL day 3 Prophylaxis - GI - Protonix - DVT - SCD/pharmacological prophylaxis contra indicated with intracerebral hemorrhage Critical Care: The total critical care time was 35 minutes. Time to perform other separately billable procedures was not included in the critical care time. Prognosis is very poor Please note patient family is decided to withdraw care. Forms B&C have been signed by myself and Dr. Leavitt and healthcare proxy. We'll extubate using benzos pains in narcotics for sedation/analgesia. Barry Cartwright MD Sep 27, 2016 11:28
[2016-09-27] MEDS ORDERED: LORazepam 2 MG/ML VIAL IV ONE ×2 (11:30→11:45)
[2016-09-27] MEDS ORDERED: HYDROmorphone HCL PF 2 MG/ML VIAL IV ONE (11:45)
[2016-09-27] MEDS ORDERED: LORazepam 2 MG/ML VIAL IV PRN ×2 (12:00)
[2016-09-27] MEDS ORDERED: HYDROmorphone HCL PF 2 MG/ML VIAL IV PRN ×2 (12:00)
[2016-09-27] MEDS ORDERED: FUROSEMIDE 20 MG/2 ML VIAL IV PRN (12:00)
[2016-09-27] MEDS ORDERED: BISACODYL 10 MG SUPP PR PRN (12:00)
[2016-09-27] MEDS ORDERED: HYDROmorphone HCL PF 2 MG/ML VIAL IV SCH (12:00)
[2016-09-27] MEDS ORDERED: ACETAMINOPHEN 650 MG SUPP PR PRN (12:00)
[2016-09-27] MEDS ORDERED: LORazepam 2 MG/ML VIAL IVS PRN (12:00)
--- NOTE | 2016-09-27 13:45 | HHI.DS ---
Summary Note Date of : Sep 27, 2016 Time Of : 13:44 Admission Date Sep 25, 2016 at 12:10 Admitting Diagnosis ICH,elevated INR Diagnosis at Time of : (1) Intracranial hemorrhage ICD Code: I62.9 Diagnosis: Principal (2) Accelerated hypertension ICD Code: I10 Diagnosis: Principal (3) History of Coumadin therapy ICD Code: Z79.01 Diagnosis: Principal (4) COPD (chronic obstructive pulmonary disease) with emphysema ICD Code: J43.9 Diagnosis: Principal (5) CAD (coronary artery disease) ICD Code: I25.10 Diagnosis: Principal (6) Aortic stenosis ICD Code: I35.0 Diagnosis: Principal (7) Diabetes mellitus ICD Code: E11.9 Diagnosis: Principal (8) Normocytic anemia ICD Code: D64.9 Diagnosis: Principal (9) Chronic kidney disease, stage IV (severe) ICD Code: N18.4 Diagnosis: Principal (10) Thrombocytopenia ICD Code: D69.6 Diagnosis: Principal (11) Depression ICD Code: F32.9 Diagnosis: Principal (12) Incontinence ICD Code: R32 Diagnosis: Principal (13) Constipation ICD Code: K59.00 Diagnosis: Principal Procedures None Brief History 81-year-old female. Date of admission 09/25/2016. Past medical history includes CVA, seizure, coronary artery disease, atrial fibrillation, aortic stenosis, ischemic cardiopathy ejection fraction between 10 and 20%, atrial fibrillation, COPD, diabetes mellitus, chronic kidney disease stage IV, osteoarthritis, and urinary incontinence. She is a resident of [facility]. CBC/BMP: 09/27/16 0615 09/27/16 0615 Significant Findings Laboratory Tests Test 09/25/16 09/25/16 09/25/16 09/25/16 10:50 12:07 18:30 18:50 Hemoglobin 11.2 GM/DL (11.6-15.3) Bedside Hemoglobin 11.9 G/DL (12.0-17.0) Hematocrit 34.0 % (35.0-46.0) Bedside Hematocrit 35.0 % (38.0-51.0) Mean Corpuscular Hemoglobin 26.7 PG (27.0-34.0) Red Cell Distribution Width 19.1 % (11.6-17.2) Platelet Count 148 TH/MM3 (150-450) Monocytes (%) (Auto) 11.9 % (0.0-8.0) Prothrombin Time 28.1 SEC 15.8 SEC (9.8-11.6) (9.8-11.6) Activated Partial 31.7 SEC Thromboplast Time (24.3-30.1) Bedside Blood Urea Nitrogen 76 MG/DL (8-26) Bedside Creatinine 2.5 MG/DL (0.6-1.0) Bedside Glucose 143 MG/DL (60-95) Aspartate Amino Transf 38 U/L (15-37) (AST/SGOT) Total Creatine Kinase 230 U/L (26-192) Arterial Blood pH 7.55 (7.380-7.420) Arterial Blood Partial 25 mmHg (38-42) Pressure CO2 Arterial Blood Partial 517 mmHG Pressure O2 (61-120) Blood Gas Hemoglobin 11.4 G/DL (12.0-16.0) Serum Osmolality 325 MOSM/KG (275-295) Test 09/25/16 09/26/16 09/26/16 09/26/16 23:49 03:30 05:15 12:50 Sodium Level 151 MEQ/L 155 MEQ/L 163 MEQ/L (136-145) (136-145) (136-145) Serum Osmolality 333 MOSM/KG 340 MOSM/KG 354 MOSM/KG (275-295) (275-295) (275-295) Red Blood Count 3.88 MIL/MM3 (4.00-5.30) Hemoglobin 10.3 GM/DL (11.6-15.3) Hematocrit 31.4 % (35.0-46.0) Mean Corpuscular Hemoglobin 26.6 PG (27.0-34.0) Red Cell Distribution Width 18.6 % (11.6-17.2) Platelet Count 117 TH/MM3 (150-450) Neutrophils (%) (Auto) 73.3 % (16.0-70.0) Monocytes (%) (Auto) 13.6 % (0.0-8.0) Lymphocytes # (Auto) 0.9 TH/MM3 (1.0-4.8) Monocytes # (Auto) 1.0 TH/MM3 (0-0.9) Prothrombin Time 15.4 SEC (9.8-11.6) Chloride Level 121 MEQ/L (98-107) Blood Urea Nitrogen 62 MG/DL (7-18) Creatinine 2.46 MG/DL (0.50-1.00) Estimat Glomerular Filtration 23 ML/MIN (>89) Rate Random Glucose 119 MG/DL (74-106) Phosphorus Level 2.3 MG/DL (2.5-4.9) Albumin 3.2 GM/DL (3.4-5.0) Arterial Blood pH 7.56 (7.380-7.420) Arterial Blood Partial 25 mmHg (38-42) Pressure CO2 Arterial Blood Partial 191 mmHg Pressure O2 (61-120) Blood Gas Hemoglobin 10.9 G/DL (12.0-16.0) Test 09/26/16 09/26/16 09/27/16 09/27/16 18:35 23:20 06:00 06:15 Sodium Level 163 MEQ/L 165 MEQ/L 163 MEQ/L (136-145) (136-145) (136-145) Serum Osmolality 359 MOSM/KG 355 MOSM/KG 355 MOSM/KG (275-295) (275-295) (275-295) Blood Gas HCO3 18 mmol/L (22-26) Blood Gas Base Excess -4.5 mmol/L (-2-2) Arterial Blood pH 7.48 (7.380-7.420) Arterial Blood Partial 25 mmHg (38-42) Pressure CO2 Blood Gas Hemoglobin 11.5 G/DL (12.0-16.0) White Blood Count 14.8 TH/MM3 (4.0-11.0) Hemoglobin 10.7 GM/DL (11.6-15.3) Hematocrit 33.7 % (35.0-46.0) Mean Corpuscular Hemoglobin 26.2 PG (27.0-34.0) Mean Corpuscular Hemoglobin 31.6 % Concent (32.0-36.0) Red Cell Distribution Width 19.0 % (11.6-17.2) Platelet Count 114 TH/MM3 (150-450) Neutrophils (%) (Auto) 82.5 % (16.0-70.0) Lymphocytes (%) (Auto) 7.0 % (9.0-44.0) Monocytes (%) (Auto) 10.0 % (0.0-8.0) Neutrophils # (Auto) 12.2 TH/MM3 (1.8-7.7) Monocytes # (Auto) 1.5 TH/MM3 (0-0.9) Prothrombin Time 14.9 SEC (9.8-11.6) Activated Partial 32.0 SEC Thromboplast Time (24.3-30.1) Fibrinogen 560 mg/dL (181-393) Chloride Level 133 MEQ/L (98-107) Carbon Dioxide Level 20.2 MEQ/L (21.0-32.0) Blood Urea Nitrogen 46 MG/DL (7-18) Creatinine 2.41 MG/DL (0.50-1.00) Estimat Glomerular Filtration 23 ML/MIN (>89) Rate Random Glucose 121 MG/DL (74-106) Phosphorus Level 1.9 MG/DL (2.5-4.9) Aspartate Amino Transf 38 U/L (15-37) (AST/SGOT) Albumin 3.0 GM/DL (3.4-5.0) Imaging Last Impressions Head CT 09/26/16 0000 Signed Impressions: Service Date/Time: Monday, September 26, 2016 04:17 - CONCLUSION: Increasing right parenchymal hemorrhage, now extending across the midline. Interval development of bilateral intraventricular blood, increased right to left shift and interval development of areas of subarachnoid hemorrhage in the left hemisphere. Nelson Boyer MD Chest X-Ray 09/25/16 0000 Signed Impressions: Service Date/Time: September 13:53 - CONCLUSION: Status post placement of right-sided central venous catheter which is in good position; no evidence of pneumothorax. Satisfactory position of nasogastric tube. Otherwise stable chest without evidence of acute process. Tima Membreno MD Hospital Course Neuro/Psych: Right hemorrhagic intracerebral hemorrhage 8.4 x 4.8 cm with subdural and subarachnoid hemorrhage with a 1.9 cm right to left shift History CVA History of seizures History of CVA Insomnia Chronic benzodiazepine use Propofol/fentanyl for sedation/analgesia while intubated Goal of RASS -2 No daily sedation vacation CT head on admission revealed a right hemorrhagic CVA 8.4 x 4 point centimeters with concurrent subdural hematoma/subarachnoid hemorrhage with 1.9 similar right to left shift. Dr. Leavitt/neurosurgery consulted . There is no intervention. 3% saline at 30 cc an hour with serial sodiums every 6 hours goal sodium 150- 155. Is been held as sodium is Currently 163. Keppra 1 g loaded with 500 twice a day for seizure prophylaxis Recheck CT head in revealed worsening of right intraparenchymal hemorrhage. Currently 2.2 cm midline shift. New left intraventricular hemorrhage and left lateral occipital horn ventricle blood seen Will keep systolic blood pressure less than 140 Cardene drip Hold home medication Restoril 15 mg at night for insomnia Holding Ativan 0.25 mg every 6 hours as needed for anxiety CV: Hypertensive emergency Coronary artery disease Ischemic coronary mouth ejection fraction 20% by echo History H fibrillation Status post post pacemaker with AICD with replacement 2015 Currently on Cardene drip to maintain systolic blood pressure less than 140 As needed labetalol/hydralazine ordered Resume Coreg 3. 125 mg twice a day for hypertension. Echocardiogram 04/04 revealed EF 20%. Systolic function severely reduced. Left ventricle dilated. Aortic valve with moderate stenosis. Mild MR. Mild TR. BASSAM 50 mmHg Holding Bumex 1 mg by mouth daily. Resume when clinically indicated Resp: Acute respiratory failure History COPD ACV 14/500/5/30 Goal end tidal CO2 between 30 and 35 Ventilator bundle As needed bronchodilator therapy Follow-up chest x-ray in a.m. Joe breathing trials when clinically indicated GI: Start tube feeding with vital 1.5 goal 50 cc an hour Protonix for GI prophylaxis Colace/as needed Senokot for bowel regimen : Urinary incontinence Holding Ditropan 5 mg by mouth twice a day Lees will be placed for accurate I's and O's in a critically ill patient Endo: Diabetes mellitus Sliding scale insulin with Accu-Cheks to maintain euglycemia/every 6 hours moderate regimen Renal: Chronic kidney disease stage IV Creatinine currently 2.5. Baseline appears around 3. Currently on normal saline at 84 cc an hour. Follow-ups BMP in a.m. Heme: Normocytic anemia Thrombocytopenia Chronic Coumadin use Status post 10 mg vitamin K, 1500 K Centra and 3 units FFP. Recheck coags this evening Obvious holding Coumadin 5 mg by mouth daily INRs still supratherapeutic at 1.4. Give vitamin K and FFP and today. ID: Monitor for infection MSK: Osteoarthritis Holding vitamin D 1000 units by mouth twice a day FEN: Replace electrolytes as clinically indicated Access - Right subclavian CVL day 3 Prophylaxis - GI - Protonix - DVT - SCD/pharmacological prophylaxis contra indicated with intracerebral hemorrhage Critical Care: The total critical care time was 35 minutes. Time to perform other separately billable procedures was not included in the critical care time. Prognosis is very poor Please note patient family is decided to withdraw care. Forms B&C have been signed by myself and Dr. Leavitt and healthcare proxy. We'll extubate using benzos pains in narcotics for sedation/analgesia Barry Cartwright MD Sep 27, 2016 13:45
== END 2016-09-27 15:22 | disposition expired | DRG 64 ==
LOC: NEPE 10:56 → NEDA 12:10 → N03B 14:40
PROVIDERS: ADMIT Internal Medicine; ATTEND Internal Medicine
PROC: 30233K1 Transfusion of Nonautologous Frozen Plasma into Peripheral Vein, Percutaneous Approach (ICD-10-PCS; principal; 2016-09-25)
PROC: 5A1945Z Respiratory Ventilation, 24-96 Consecutive Hours (ICD-10-PCS; 2016-09-25)
PROC: 02HV33Z Insertion of Infusion Device into Superior Vena Cava, Percutaneous Approach (ICD-10-PCS; 2016-09-25)
PROC: 0BH17EZ Insertion of Endotracheal Airway into Trachea, Via Natural or Artificial Opening (ICD-10-PCS; 2016-09-25)
PROC: 0T9B70Z Drainage of Bladder with Drainage Device, Via Natural or Artificial Opening (ICD-10-PCS; 2016-09-25)
DX: I61.5 Nontraumatic intracerebral hemorrhage, intraventricular (principal); J96.00 Acute respiratory failure, unspecified whether with hypoxia or hypercapnia; N18.4 Chronic kidney disease, stage 4 (severe); I12.0 Hypertensive chronic kidney disease with stage 5 chronic kidney disease or end stage renal disease; D69.6 Thrombocytopenia, unspecified; E11.22 Type 2 diabetes mellitus with diabetic chronic kidney disease; I50.9 Heart failure, unspecified; I16.1 Hypertensive emergency; I60.9 Nontraumatic subarachnoid hemorrhage, unspecified; I62.00 Nontraumatic subdural hemorrhage, unspecified; I48.91 Unspecified atrial fibrillation; Z79.01 Long term (current) use of anticoagulants; M19.90 Unspecified osteoarthritis, unspecified site; E78.00 Pure hypercholesterolemia, unspecified; J44.9 Chronic obstructive pulmonary disease, unspecified; Z86.73 Personal history of transient ischemic attack (TIA), and cerebral infarction without residual deficits; I25.2 Old myocardial infarction; Z95.810 Presence of automatic (implantable) cardiac defibrillator; Z87.891 Personal history of nicotine dependence; I25.5 Ischemic cardiomyopathy; I25.119 Atherosclerotic heart disease of native coronary artery with unspecified angina pectoris; I35.0 Nonrheumatic aortic (valve) stenosis; D64.9 Anemia, unspecified; F32.9 Major depressive disorder, single episode, unspecified; R32 Unspecified urinary incontinence; K59.00 Constipation, unspecified; Z79.4 Long term (current) use of insulin; R79.1 Abnormal coagulation profile; G47.00 Insomnia, unspecified
CPT/HCPCS: 31500; 36430; 36600; 70450; 71010; 80053; 80076; 82435; 82550; 82552; 82565; 82805; 82947; 83605; 83735; 83930; 84100; 84132; 84295; 84520; 85025; 85384; 85610; 85730; 86850; 86900; 86901; 86927; 87641; 93005; 94002; 94003; 94770; 99292; C9113; C9132; J0330; J1170; J1953; J2060; J3010; J3430; J7030; J7050; P9017